=== PATIENT | female | born 1990 | race Caucasian/White ===

== ENCOUNTER → 2018-10-09 | Outpatient (REF) | payer BC ==
[2018-10-09 19:21] LABS: PLATELET COUNT, AUTOMATED 216 K/uL (150-450)
== END ==
PROVIDERS: ATTEND Nurse Practitioner Family
DX: R10.9 Unspecified abdominal pain (principal); R19.7 Diarrhea, unspecified
CPT/HCPCS: 82040; 82247; 82310; 82374; 82435; 82565; 82947; 84075; 84132; 84155; 84295; 84450; 84460; 84520; 85025

== ENCOUNTER → 2018-10-11 | Outpatient (REF) | payer BC | PROVIDERS: ATTEND Nurse Practitioner Family | DX: R10.9 Unspecified abdominal pain (principal) | CPT/HCPCS: 82274; 83630; 87045; 87177 ==